=== PATIENT | male | born 1945 | race Caucasian/White ===

== ENCOUNTER 2019-03-07 10:14 | Day surgery (SDC) | payer MEDICARE, BC ==
[2019-03-07] MEDS ORDERED: PROPOFOL 10 MG/ML VIAL IV ONE (10:15)
[2019-03-07] MEDS ORDERED: LIDOCAINE 2% MDV (20MG/ML) 20ML VIAL IV ONE (10:15)
--- NOTE | 2019-03-08 14:21 | Operative Note ---
DATE OF SURGERY: 03/07/2019 OPERATION: COLONOSCOPY to the cecum with cold snare polypectomy x2, electrocautery snare polypectomy x2, and endoclip placement x1. INDICATION: History of adenomatous polyps. The patient returns at this time for surveillance after his last examination was completed in 2015. ANESTHESIA: Intravenous sedation was administered by the department of anesthesiology and included Diprivan titrated to effect. PROCEDURE: Following informed consent from this alert individual including a discussion of the risks and benefits of the procedure and an opportunity for the patient to ask questions, the patient was in the left lateral decubitus position. A digital rectal examination was performed. No abnormalities were noted. Following this, the Olympus [id number] video colonoscope was inserted into the rectum without resistance. The rectal mucosa initially had a normal appearance with normal folds and distensibility. The colonoscope was advanced to the sigmoid colon where scattered diverticula were noted. It was further advanced up through the bowel to the level of the cecum without much difficulty although abdominal pressure support was supplied to facilitate reaching the cecal base and visualizing the appendiceal orifice. In the ascending colon, there were 2 polyps noted. The larger polyp measured 10 mm in size and was removed with electrocautery snare polypectomy. A white eschar was noted. A clip was placed at the site, as the patient will be starting his Eliquis. The smaller ascending colon polyp was 6 mm in size and removed with cold snare polypectomy. Both polyps were suctioned through the colonoscope into a collection trap. Overall, the preparation was good. From the base of the cecum, the colonoscopy was slowly withdrawn. There was an additional diminutive 3-4 mm polyp noted in the descending colon removed with cold snare polypectomy. Again, scattered diverticula were seen in the sigmoid colon. Upon withdrawal into the rectum, there was an 8 mm inflammatory appearing polyp noted at the distal rectum which was removed with electrocautery snare polypectomy. It was suctioned through the colonoscope into a collection trap. A white eschar was noted. There was no bleeding. Retroflexion was otherwise fairly unremarkable. The endoscope was straightened and removed. The patient tolerated the procedure well and was returned to the recovery area in stable condition. IMPRESSION: 1. Two ascending colon polyps noted above, the larger measuring 10 mm in size was removed with electrocautery snare polypectomy and an endoclip was placed at the site. There was no bleeding. The small polyp was 6 mm in size removed with cold snare polypectomy. 2. A 3-4 mm descending colon polyp removed with cold snare polypectomy. 3. An 8 mm distal rectal polyp which appeared inflammatory in type, removed with electrocautery snare polypectomy. 4. Sigmoid diverticulosis. RECOMMENDATIONS: The patient was advised he should receive a copy of his pathology report at home in the next 2-3 weeks. If not, he was asked to call my office to review the results of pathology today. Further recommendations will be forthcoming pending pathology. Followup will also be with Dr. Jamison Flores. As always, thank you for allowing me to participate in the care of your patient. CC: Edgard Flores, DO [facility]
== END 2019-03-07 12:30 | disposition home or self-care (01) ==
LOC: HOP 10:14
PROVIDERS: ATTEND Internal Medicine Gastroenterology
DX: Z12.11 Encounter for screening for malignant neoplasm of colon (principal); Z86.010 Personal history of colon polyps; D12.2 Benign neoplasm of ascending colon; K63.5 Polyp of colon; K62.1 Rectal polyp; K57.30 Diverticulosis of large intestine without perforation or abscess without bleeding; I10 Essential (primary) hypertension; E78.00 Pure hypercholesterolemia, unspecified; K21.9 Gastro-esophageal reflux disease without esophagitis; M10.9 Gout, unspecified